=== PATIENT | female | born 1975 | race Hispanic/Latino ===

== ENCOUNTER 2021-05-28 10:05 | Emergency (ER) | payer SELFPAY ==
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
[2021-05-28] MEDS ORDERED: WATER FOR INJ,STERILE 10 ML ONE (14:09)
[2021-05-28 14:42] VITALS: BP 124/84; TEMP 97.9; O2SAT 96
== END 2021-05-28 14:32 | disposition home or self-care (01) ==
LOC: ER 10:05
DX: T76.21XA Adult sexual abuse, suspected, initial encounter (principal); F17.210 Nicotine dependence, cigarettes, uncomplicated
CPT/HCPCS: 96372; 99283